=== PATIENT | female | born 1955 | race Caucasian/White ===

== ENCOUNTER 2018-04-16 10:00 | Outpatient (RCR) | payer BC, SELFPAY ==
--- NOTE | 2018-04-08 14:18 | IE_ITS ---
Date: April 08, 2018 Referring: Parish Thao M.D. M.D. Diagnosis: left shoulder impingement syndrome P.T. Diagnosis: same (supraspinatus tendinitis) SUBJECTIVE: History of Present Illness: Fiordaliza is presenting to P.T. with complaints of left shoulder pain. Shoulder pain began last week of December 2017 following an extensive canoe trip (about one month) where she was canoeing hourly on a daily basis. She has a significant history, prior to this, of three rotator cuff tears, but had no exacerbation of the right shoulder pain while on her trip. She does recall global bilateral shoulder achiness following her trip. The left shoulder discomfort never resolved, and became more severe. She does not recall one specific evident of obvious trauma. She did have a cortisone injection to the left shoulder in February (Dr. Thao) with two days of relief. She reports returning to weight lifting shorter thereafter, and while she only did half the weights she normally lifts it exacerbated her pain levels. She is knowledgeable about rotator cuff strengthening considering her history with her right shoulder, and has been utilizing light free weights of approximately 3 to 4# for rotation strengthening bilaterally. However, she is now only able to use 1# on the left side due to weakness as well as her discomfort. She is very nervous about the development of her left shoulder pain , as she is a very avid canoeing with an upcoming tripped planned. She does not want to miss this trip. She is also nervous that her fellow canoe friends will stop asking her on trips. Pain Ratin to 8/10 Pain Location: Left shoulder blade, left lateral deltoid Prior Level of Function: WNL Current Level of Function: She cannot lift her hiking backpack. She has sleep disruption on her left side. She has pain when pulling her shift over her head or even holding a mirror to put her makeup on with her left arm. She cannot push doors open or push anything to her side with the left UE. She has difficulty getting her hand behind her back. 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 She lives in a private home with her significant other. Comorbidities: Osteopenia, right rotator cuff repairs 2011, 2012 and 2016, left rotator cuff 2013 Medications: Not reported. Quality of Life: __x__ Fair Standardized Measures: DASH score: __36%__ OBJECTIVE: Posture: Mild scapular winging bilaterally, left slightly greater than right. Shoulder protrusion, left slightly greater than right, but no obvious other deformities or remarkable impairments. Observation: (behavior, atrophy, skin color, etc.) She communicates well, but is emotional when discussing her functional limitations and her inability to carry out her outdoor endeavors. She is nervous regarding her future in these areas. Gait: WNL Palpation: Tension throughout the left infraspinatus muscle belly, supraspinatus musculotendinous junction and left upper trapezius. Edema: N/A ROM: Cervical spine and right UE are WNL. Left UE is also WNL A and P, but reports of intermittent impingement discomfort. P, has end range discomfort at about 150 of abduction, but with AP glides this dissipates. Joint Accessory Motion: Hyper mobile scapulothoracic all planes. Glenohumeral is WNL, but with most noted limitations AP, but still WNL. Strength: Flexion 3+/5 with pain, abduction 4/5, internal rotation 5/5, external rotation 3+/5 with pain (tears resulting). Neuro: WNL left UE. Special Tests: (-) speeds. (+) empty can. (+) [place] Adriel and Neer impingement testing. (-) drop arm. (-) labral testing. Treatment: IE: 38240 x1 Manual therapy: 05576 x1 Patient Education: Differ heavy lifting and repetitive movements. HEP instruction to include: 1) standing or sitting lower trapezius isometric 10 seconds 10x every half hour 2) prone lower trapezius concentric contraction with glenohumeral extension 10 seconds 10x as often as possible Manual therapy: Left scapulothoracic mobs, all planes, more for desensitization and neuro facilitation. Soft tissue massage to the posterior capsule and infraspinatus down regulation, posterior capsule cross friction massage and trigger point release to the infraspinatus fossa and supraspinatus region. Cross friction massage desensitization to the infraspinatus fossa, lower trapezius up regulation, and Rock taping to facilitate proper movement pattern of left shoulder girdle. Direct treatment time: 60 minutes ASSESSMENT: Patient is a 62-year-old female, referred for PT services with the diagnosis of left shoulder impingement syndrome. Patient presents with clinical signs and symptoms consistent with left supraspinatus tendinitis, impingement syndrome, as demonstrated by the following impairment level findings: 1) movement dysfunction of the left shoulder girdle 2) soft tissue dysfunction of the infraspinatus and supraspinatus 3) scapulothoracic instability 4) shoulder girdle weakness, particularly of external rotators, rotator cuff and scapulothoracic musculature Impairments are contributing to the following functional limitations: 1) inability to do heavy lifting 2) cannot sleep on her left side, with sleep disruption 3) cannot carry out outdoor endeavors 4) cannot carry a heavy backpack 5) cannot hold things in her left arm at shoulder height Patient is assessed as: __x__ Moderate 19847 complexity, based on the following : History: (list): See comorbidities and social history. Examination: (list): See above for functional limitations and impairments. Presentation: Evolving Decision-Making: Moderate complexity 36 % Disability based on DASH ____ Patient requires skilled PT intervention to remediate the above functional limitations to return to: __x__ Premorbid level of function __x__ Return to full functional mobility __x__ Other: return to premorbid level of outdoor endeavors/recreational activities Prognosis: __x__ Good STG: __6__ weeks. 1) DASH improved to 25% disability 2) sleeping without disruption 3) able to return to weight lifting at least 3 to 4# with focus on deltoid and open chain flexion and abduction activities so she can return to her recreational activities 4) pulling shirts overhead without discomfort LTG: __12__ weeks. __x__ Return to premorbid level of function. __x__ Return to full, pain-free, functional mobility. __x__ Independent with self-maintenance program. PLAN: Patient to be seen 2x per week, for 12 weeks, adjusting frequency of visits per patient symptoms and response to treatment. Treatment to include: Manual therapy - 75075 - soft tissue mobs, scapulothoracic and glenohumeral articular mobs of the left shoulder girdle Neuro re-ed - 55656 - up regulation techniques, body awareness exercise to improve serratus anterior and lower trapezius activation for proper movement pattern Therapeutic exercise - 85894 - gross left shoulder girdle strengthening Thank you for this referral. Please do not hesitate to contact me with any questions or concerns regarding this patient's plan of care.
--- NOTE | 2018-04-11 08:00 | PTTR_ITS ---
DATE: 04/11/18 SUBJECTIVE: Fiordaliza stating that following her first treatment session, she was able to sleep without pain last night. She woke up pain at about 3am, but she feels she had been laying on the L side for some time. She did find the exercises to be helpful. Tape was a good reminder for her to use proper alignment of her shoulder. Manual therapy: ([id number]). L shoulder distraction, gliding in all planes of movement with focus of grade 4 AP mobilizations. Mobilization of L GH joint all planes with focus of AP MWM into flexion/quadrant positions. Cross body stretching with stabilization of the scapula. L scap thoracic mobilizations with lift off and distraction, STM with focus on the supraspinatus, posterior capsule and desensitization, supraspinatus tendon. She is then seen by Eloise Rosario PTA for Therex portion of treatment per my direction (see her note) ROM is full passively with end range discomfort into flexion in quadrant with soft tissue restriction, but otherwise WNL. Notable soft tissue tension to the supraspinatus, posterior capsule and remarkable sensitivity of the supraspinatus tendon. Direct treatment time: 30 MINS Total treatment time: 30 MINS JH/dl
--- NOTE | 2018-04-11 08:30 | PTTR_ITS ---
DATE: 04/11/18 Co-treat with primary therapist DAVID Huston (see her note for specifics ) Therapeutic procedures ([id number]). Began with brief IASTM up regulation to the lower trap musculature followed by application of Rock tape technique starting at the anterior L shoulder and attaching to the lower trap. This was followed by initiation of scapular, and lower trap strengthening program per flow sheet details. She requires cues and tactile feedback for appropriate positioning and muscle activation. Performed open/close chain strengthening including serratus, anterior strengthening and lower trap strengthening. * x See flow sheet: Direct treatment time: 30 mins Total treatment time: 30 mins LB/dl
--- NOTE | 2018-04-16 10:00 | PTTR_ITS ---
DATE: 04/16/18 SUBJECTIVE: Fiordaliza stating no great change in symptoms. She was very sore following her last treatment after friction massage along front of the shoulder , but it did dissipate after a day or two. Notes most of her pain when reaching up behind her back along anterior shoulder and when sleeping. However , when stabilizing her shoulder blade and putting herself in proper movement pattern, she admits she is able to reduce her pain in L shoulder when reaching behind back. OBJECTIVE: ROM: A/P are full and non-irritable. PALPATION; Soft tissue tension and pain along posterior capsule, infraspinatus fossa, and sensitivity along the anterior GH joint. Manual therapy: ([id number]). GH and scap, thoracic accessory mobilization all planes for nerve facilitation, general relaxation, STM through the L posterior capsule, CFM along the anterior GH joint along the supraspinatus and anterolateral telescoping for neuro facilitation. Therapeutic procedures ([id number]). Complete series as follows: 1: Prone L GH flexion, horizontal abduction, rowing and extension all 0#, 20x with up regulation stimulation to lower trap throughout. 2: R sidelying L ER 0#, x20 as well as deceleration into horizontal adduction x20. 3: Modified plank for serratus activation-1 minute hold. All of these are issued to her for HEP to complete over next week as she will be out of town. Direct treatment time: 30 mins Total treatment time: 30 mins A: Fiordaliza is actually demonstrating very good ROM, non-irritable. Considering her subjective description of impingement when sleeping and reaching behind her back, I think with further stabilization of the scapula and activation of the lower trap, will be able to control the movement of GH joint with dissension activities and with IR movements, assuming she is compliant, which I anticipate she will be. P: Follow up in one week progress strengthening program for L shoulder girdle. TOMASA/dl
== END 2018-04-19 23:59 | disposition home or self-care (01) ==
LOC: PT 10:00
PROVIDERS: Referring Provider Orthopaedic Surgery; Visit Provider Orthopaedic Surgery
DX: M75.42 Impingement syndrome of left shoulder (principal); M75.32 Calcific tendinitis of left shoulder
CPT/HCPCS: 97110; 97140; 97162

== ENCOUNTER 2020-07-30 09:13 | Outpatient (CLI) | payer BC, SELFPAY ==
--- NOTE | 2020-07-30 08:45 | DI.RAD_ITS ---
EXAM: XR KNEE RT 4V AP,LAT,SEVERO,PAT CLINICAL HISTORY: R knee pain. TECHNIQUE: 2D digital imaging was performed. COMPARISON: CR LEFT KNEE LIMITED 1 OR 2 VIEWS from 08/24/2009 FINDINGS: BONES: No acute fracture is present. No bony destructive lesion is seen. S/p ACL repair. Normal mine ralization. JOINTS: The knee is normally aligned. No joint effusion is seen. Joint spaces well maintained. Mild to moderate periarticular spurring. SOFT TISSUE: Normal. IMPRESSION: S/p ACL reconstruction. Mild degenerative changes. DATA REPOSITORY: RADIATION DOSE DELIVERED:
== END 2020-07-30 09:33 ==
PROVIDERS: PCP Family Medicine; Referring Provider Family Medicine; Visit Provider Physician Assistant
DX: M25.561 Pain in right knee (principal); M17.11 Unilateral primary osteoarthritis, right knee
CPT/HCPCS: 73564

== ENCOUNTER 2021-05-02 09:52 | Outpatient (CLI) | payer BC, SELFPAY ==
--- NOTE | 2021-05-02 09:30 | DI.RAD_ITS ---
Exam(s) XR STANDING ALIGNMENT EXAM: XR STANDING ALIGNMENT CLINICAL HISTORY: eval R knee alignment. TECHNIQUE: 2D digital imaging was performed. Standing AP views were performed from the pelvis throu gh the ankles. COMPARISON: No exams were available for comparison FINDINGS: BONES: No acute fracture is present. No bony destructive lesion is seen. JOINTS: Knees: Prior right ACL repair. Periarticular spurring right greater than left.. Joint space s well maintained. The ankle and hip joints are unremarkable. SOFT TISSUE: Normal. IMPRESSION: No significant leg length discrepancy. Degenerative changes of both knees, right greater than left. DATA REPOSITORY: RADIATION DOSE DELIVERED:
--- NOTE | 2021-05-02 09:30 | DI.RAD_ITS ---
Exam(s) XR KNEE RT 2V AP,LAT EXAM: XR KNEE RT 2V AP,LAT CLINICAL HISTORY: eval continued r knee pain. TECHNIQUE: 2D digital imaging was performed. COMPARISON: CR XR KNEE RT 4V AP,LAT,SEVERO,PAT from 07/30/2020 FINDINGS: BONES: No acute fracture is present. No bony destructive lesion is seen. Hardware related to ACL repa ir. JOINTS: There is narrowing of the lateral femoral tibial joint space and periarticular spurring. The re is mild spurring from the medial femoral tibial joint and patellofemoral joint.. A small joint ef fusion is seen. SOFT TISSUE: Normal. IMPRESSION: Worsening of degenerative changes of the lateral femoral tibial joint. Prior ACL repair. DATA REPOSITORY: RADIATION DOSE DELIVERED:
== END 2021-05-02 09:53 | disposition home or self-care (01) ==
LOC: DIORS 09:53
PROVIDERS: PCP Family Medicine; Referring Provider Family Medicine; Visit Provider Student in an Organized Health Care Education/Training Program
DX: M17.11 Unilateral primary osteoarthritis, right knee (principal)
CPT/HCPCS: 73560; 77073

== ENCOUNTER 2021-07-11 02:26 | Outpatient (CLI) | payer BC, SELFPAY ==
[2021-07-11 13:36] LABS: Source Nasal/Nares
[2021-07-11 17:39] LABS: COVID-19 PCR Negative (Negative)
== END 2021-07-11 02:27 | disposition home or self-care (01) ==
LOC: LBO 02:26
PROVIDERS: PCP Family Medicine; Visit Provider Student in an Organized Health Care Education/Training Program
DX: Z20.822 Contact with and (suspected) exposure to COVID-19 (principal)
CPT/HCPCS: 87635

== ENCOUNTER 2021-07-11 03:33 | Outpatient (CLI) | payer BC, SELFPAY ==
[2021-07-11 09:55] LABS: HGB 13.1 g/dL (11.2-15.7); MCH 30.1 pg (27.0-33.0); MCHC 32.8 % (32.0-36.0); Platelet Count 241 10^3/uL (130-400); RBC 4.35 10^6/uL (3.93-5.22); RDW 12.5 % (11.7-14.6); RDW-SD 42.4 fL; WBC 3.91 10^3/uL (4.4-10.8)
[2021-07-11 10:12] LABS: BUN 21 mg/dL (7-18); CREATININE 0.8 mg/dL (0.55-1.02); Calcium 9.3 mg/dL (8.5-10.1); Chloride 107 mmol/L (98-107); Glucose 58 mg/dL (74-106); Potassium 4.4 mmol/L (3.5-5.1); Sodium 146 mmol/L (136-145)
== END 2021-07-11 03:34 | disposition home or self-care (01) ==
LOC: LBO 03:33
PROVIDERS: PCP Family Medicine; Visit Provider Student in an Organized Health Care Education/Training Program
DX: M17.11 Unilateral primary osteoarthritis, right knee (principal); Z01.818 Encounter for other preprocedural examination
CPT/HCPCS: 36415; 80048; 85027

== ENCOUNTER 2021-07-12 09:03 | Day surgery (SDC) | payer BC, SELFPAY ==
[2021-07-12] VITALS (9 sets, daily range): BP systolic 94–130; BP diastolic 59–80; PULSE 62–76; RESP 13–20; TEMP 36.3–37.7; O2SAT 95–100; BMI 23.0
--- NOTE | 2021-07-12 09:59 | W.ANESPRE ---
General Info Date of Service Date Performed: 07/12/21 Height: 5 ft 0.75 in Weight: 54.885 kg Body Mass Index (BMI): 23.0 Surgical Procedure: Operation Date: 07/12/21 12:10 Proposed Procedures Side Surgeon p Knee Total Arthroplasty Right Miguel Lauren MD Meds Allergies and Home Medications Allergies Allergy/AdvReac Type Severity Reaction Status Date / Time hydrocodone Allergy Verified 07/12/21 09:35 codeine AdvReac Severe NAUSEA/VOMI Unverified 07/12/21 09:35 TING gluten AdvReac Unknown DIARRHEA; Unverified 07/12/21 09:35 PAIN homatropine [Homatropine] AdvReac Unknown VOMITING Unverified 07/12/21 09:35 lactose AdvReac Unknown Nausea Unverified 07/12/21 09:35 Home Medication Medication Instructions Recorded calcium carbonate-vitamin D3 1 ea PO BID 02/28/13 [Os-Edwin 500+D Tablet] cyclosporine [Restasis] 1 drp OPHTHALMIC BID drp 02/28/13 estradiol [Vagifem] 10 mcg VG TWICE A WEEK #26 tab-cap 07/24/13 olopatadine 0.1 % eye drops 1 drp OPHTHALMIC (EYE) BID 06/24/21 albuterol sulfate 1 puff INHALATION DIRECTED 07/11/21 efinaconazole [Jublia] 1 applic TOPICAL DIRECTED 07/11/21 Current Visit Medications: Current Medications Generic Name Dose Route Start Last Admin Trade Name Freq PRN Reason Stop Dose Admin Acetaminophen 1,000 mg 07/12/21 06:00 Acetaminophen 500 Mg Tab PO 07/12/21 16:00 PREOP RASHMI Celecoxib 400 mg 07/12/21 06:00 Celecoxib 200 Mg Cap PO 07/12/21 16:00 PREOP RASHMI Gabapentin 300 mg 07/12/21 06:00 Gabapentin 300 Mg Cap PO 07/12/21 16:00 PREOP RASHMI Tranexamic Acid 1,000 mg/ 60 mls @ 360 mls/hr 07/12/21 06:00 Sodium Chloride IVPB 07/12/21 16:00 PREOP RASHMI Tranexamic Acid 1,000 mg/ 60 mls @ 360 mls/hr 07/12/21 06:00 Sodium Chloride IVPB 07/12/21 16:00 DIRECTED RASHMI Ringer's Solution 1,000 mls @ 80 mls/hr 07/12/21 06:00 IV 08/10/21 23:59 INFUSION RASHMI Cefazolin Sodium/Dextrose 2 gm in 50 mls @ 100 mls/hr 07/12/21 06:00 Ancef Duplex IVPB 08/10/21 23:59 PREOP RASHMI IV Miscellaneous Supplies 1 each 07/12/21 06:00 Iv Access IV 08/10/21 23:59 DIRECTED RASHMI Sodium Chloride 0 ml 07/12/21 06:00 Normal Saline Flush 10 Ml Syr IV 08/10/21 23:59 PRN PRN Sodium Chloride 0 ml 07/12/21 06:00 Normal Saline 10 Ml Vial IJ 08/10/21 23:59 DIRECTED PRN Sterile Water 0 ml 07/12/21 06:00 Water,Injection,Sterile 10 Ml Vial IJ 08/10/21 23:59 DIRECTED PRN PFSH Active Problems Active Problems: Problem Status Onset Code Arthritis of right knee M17.11 Asymmetrical sensorineural hearing loss H90.3 Medical History Active Problem List (Updated 07/12/21 @ 09:48 by Kelly Becker) Arthritis of right knee (Acute) Asymmetrical sensorineural hearing loss (Acute) Medical History (Updated 07/12/21 @ 09:48 by Kelly Becker) Breast lump (03/19/07) Celiac disease Chondromalacia of right patellofemoral joint DVT (deep venous thrombosis) Dysfunctional uterine bleeding Hemorrhoids Herpes zoster History of asthma Lactose intolerance Menopausal syndrome Osteopenia per Dexa 2003/ unchanged in 2004 Polyp of colon 05/31/11- COLONOSCOPY DR. POOL Postoperative nausea and vomiting Rectocele Rotator cuff syndrome (03/06/11) S/P surgery x 3 Thrombophlebitis R LEG @ AGE 16, POST TRAUMATIC Varicose veins of lower extremity (09/07/09) Surgical History Surgical History BUNIONECTOMY 2005 1979 B/L Colonoscopy - MAC (06/01/11) DR. POOL Hemorrhoidectomy (~2008) History of repair of ACL Rotator Cuff Repair x 3 Status post reconstruction of anterior cruciate ligament (~05/2019) VEIN STRIPPING (~2009) Tobacco Smoking/Tobacco Use Status: Never Alcohol Alcohol Intake: never Substance Use Substance use: Never Substance use type: does not use Vital Signs and Lab Results Vital Signs Most Recent Vital Signs in EMR: Most Recent Vital Signs Temp Pulse Resp BP Pulse Ox 36.8 C 67 16 118/78 99 07/12/21 09:30 07/12/21 09:30 07/12/21 09:30 07/12/21 09:30 07/12/21 09:30 Lab Results Blood Type / Crossmatch: No Data to Display Complete Blood Count: White Blood Count 3.91 10^3/uL (4.4-10.8) L 07/11/21 09:32 07/11/21 Red Blood Count 4.35 10^6/uL (3.93-5.22) 07/11/21 09:32 07/11/21 Hemoglobin 13.1 g/dL (11.2-15.7) 07/11/21 09:32 07/11/21 Hematocrit 40.0 % (36.0-46.0) 07/11/21 09:32 07/11/21 Platelet Count 241 10^3/uL (130-400) 07/11/21 09:32 07/11/21 Complete Metabolic Panel: Sodium Level 146 mmol/L (136-145) H 07/11/21 09:32 07/11/21 Potassium Level 4.4 mmol/L (3.5-5.1) 07/11/21 09:32 07/11/21 Chloride Level 107 mmol/L (98-107) 07/11/21 09:32 07/11/21 Carbon Dioxide Level 34.0 mmol/L (21.0-32.0) H 07/11/21 09:32 07/11/21 Blood Urea Nitrogen 21 mg/dL (7-18) H 07/11/21 09:32 07/11/21 Creatinine 0.8 mg/dL (0.55-1.02) 07/11/21 09:32 07/11/21 Estimated GFR/1.73 m2 >= 60.00 (mL/min/1.73m2) 07/11/21 09:32 07/11/21 Calcium Level 9.3 mg/dL (8.5-10.1) 07/11/21 09:32 07/11/21 Glucose Level 58 mg/dL (74-106) L 07/11/21 09:32 07/11/21 Liver Function Panel: No Data to Display Coagulation Panel: No Data to Display Cardiac Panel: No Data to Display Arterial Blood Gas: No Data to Display Venous Blood Gas: No Data to Display Pancreas Panel: No Data to Display Thyroid Panel: No Data to Display Infectious Disease: Coronavirus (COVID-19)(PCR) Negative (Negative) 07/11/21 10:15 07/11/21 Coronavirus 2019 Source Nasal/Nares 07/11/21 10:15 07/11/21 Blood Cultures: No Data to Display Toxicology Panel: No Data to Display Anesthesia Assessment and Plan Anesthesia History Personal History: PONV Family History: Other (PONV) Exercise Tolerance Exercise Tolerance: Metabolic Equivalents>4 Pertinent Negatives Pertinent Negatives: No Symptoms of GERD, No Major Cardiovascular Symptoms or Complaints and No Major Pulmonary Symptoms or Complaints Cardiac & Pulmonary Exam Cardiac Exam: Normal S1/S2 Heart Sounds Pulmonary Exam: Clear Bilateral Breath Sounds Implantable Cardiac Device Does patient have a Pacemaker or an ICD?: No Airway Exam Known Difficult Airway: No Mallampati Class: 1 Mouth Opening: Normal (> 3cm) Thyromental Distance: Greater than 3 cm Neck Range of Motion: Full ROM Neck Circumference: Normal Teeth Condition: Normal Dentition Airway Comments: Chipped #11 ASA Classification ASA Score: ASA 2 Emergency Case?: No NPO Status NPO Status: NPO Clears >2 hours, Solids >8 hours Anesthesia Plan Resuscitation Status: Full Code Anesthesia Technique: Spinal Anesthesia Airway Planned: Natural Airway Monitors Used: Standard Monitors
[2021-07-12] MEDS: Lactated Ringers 1,000 ML 80 ML IV (10:00)
[2021-07-12] MEDS: Celecoxib 200 MG CAP 400 MG PO (10:08)
[2021-07-12] MEDS: Gabapentin 300 MG CAP PO (10:08)
[2021-07-12] MEDS: Acetaminophen 500 MG TAB 1000 MG PO (10:08)
--- NOTE | 2021-07-12 10:28 | W.ANESNERVE ---
Nerve Block Single Injection Procedure Date and Time Date Performed: 07/12/21 Procedure Start: : Location Where Procedure Performed Procedure Location: Day Surgery Unit Reason Performed: Postoperative Analgesia Requesting Provider: Miguel Lauren Timeout Performed Timeout Performed: Yes Monitoring Used ECG, Blood Pressure, SpO2 and See EMR for corresponding vital signs Sterility Sterility: Hand Hygiene, Surgical Cap, Surgical Mask, Sterile Gloves, Sterile Drape/Sheet, Eye Protection and Chlorhexidine Sedation Given During Procedure Sedation Given (Indicate Dose Given): No Sedation given Patient Mental Status Patient Mental Status: Awake Nerve Block 1st Nerve Block: Laterality: Right Block Type: Adductor Canal Needle / Catheter Used: 100mm SonoPlex II Local Anesthetic Bolus (Indicate Dose Given): Lidocaine used for local infiltration of skin, Injected in 3-5ml increments after negative blood aspiration and Bupivacaine 0.25% Dose:: 20 cc Additives (Indicate Dose Given): None Ultrasound: Sterile probe cover and gel used Ultrasound Image Saved?: Yes Nerve Stimulator: Not Used Paresthesia: None Post Procedure Pain score (0-10): 0 Procedure Tolerated: No Complications and Patient tolerated well Procedure Outcome: Successful Performed By: Severino Brower
[2021-07-12] MEDS: ceFAZolin 2 GM/50 ML BAG IVPB (10:45)
[2021-07-12] MEDS: Ketorolac 30 MG/ML VIAL (11:35)
[2021-07-12] MEDS: Normal Saline 50 ML (11:35)
[2021-07-12] MEDS: Bupivacaine 0.25% Pres-Free 30 ML VIAL (11:35)
--- NOTE | 2021-07-12 12:46 | W.PM.DSUDISC ---
Discharge Plan Disposition Patient Disposition: HOME Condition: Good Discharge Details Reason For Visit: Right TKA Attending Provider: Miguel Lauren Primary Care Provider: Ramona Chapa Home Meds and New Rx's Prescriptions: New acetaminophen 500 mg tablet 1,000 mg PO TID Qty: 90 RF: 0 aspirin 81 mg tablet,delayed release (DR/EC) 81 mg PO BID Qty: 60 RF: 0 celecoxib 200 mg capsule 200 mg PO BID Qty: 60 RF: 0 gabapentin 300 mg capsule 300 mg PO QHS Qty: 14 RF: 0 hydromorphone 2 mg tablet 1 - 2 mg PO Q4H PRN (Reason: pain) Qty: 20 RF: 0 pantoprazole 40 mg tablet,delayed release (DR/EC) 40 mg PO DAILY Qty: 30 RF: 0 Continued olopatadine 0.1 % drops 1 drp ophthalmic (eye) BID RF: 0 Restasis 1 EACH dropperette 1 drp Ophthalmic BID RF: 0 calcium carbonate-vitamin D3 [Os-Edwin 500 + D3] 1 EACH tablet 1 ea PO BID RF: 0 estradiol [Vagifem] 10 MCG tablet 10 mcg VG TWICE A WEEK Qty: 26 RF: 12 albuterol sulfate 90 mcg/actuation HFA aerosol inhaler 1 puff inhalation DIRECTED RF: 0 Jublia 10 % solution with applicator 1 applic TOPICAL DIRECTED RF: 0 Discharge Instructions Additional Instructions: Total Knee Discharge Instructions Activity: The most important activity is to walk. You should try to take short walks a few times a day. It is important that when resting you work on keeping the knee straight. Avoid putting a pillow behind the knee as this will encourage flexion. Work on range of motion exercises as provided by Physical Therapy. If you have the [employer] bike coming, this will be your primary tool for exercise after the knee replacement. You should use it and follow the directions for the knee. Utilize the other exercises sparingly based on your symptoms. - Start outpatient physical therapy within 2 weeks. - You should wear the MILAD hose on both legs for 2 weeks. You may remove these at night. You may also use any compression sock in place of the MILAD hose. - Utilize [employer] to review exercises, see videos on exercises and obtain basic information pertaining to your surgery and your recovery. Dressing: Remove the Celio wrap by 2 days after your surgery and put on the MILAD stocking given to you from the hospital. Keep the surgical dressing (underneath the CELIO wrap) in place for at least one week. After the first week it may be removed and replaced with light gauze and tape or nothing. The wound and dressing may get wet after 3 days but avoid soaking the dressing or otherwise it will need to be changed. Many people prefer covering the dressing with cling wrap (saran wrap) to minimize it from getting soaked. If it gets wet, just pat dry. If it starts to peel off then it will need to be changed. Medications: - You should take Tylenol and anti-inflammatory Celebrex as your primary pain control medications. If the Celebrex is too expensive or not covered, please call the office for another alternative (Advil/Ibuprofen or Naproxen/Aleve) - You have been prescribed a stronger pain medication Hydromorphone for breakthrough pain, take as needed as prescribed. - You have also been prescribed a stomach acid reduction agent Pantoprozole to help reduce stomach acid and reflux. - You have been prescribed Gabapentin to take at night for restlessness and nerve pain. - You will be taking Aspirin 81mg twice a day for DVT prevention unless instructed otherwise. - If you have constipation you should take Colace or Miralax (both [id number]). It takes most people 3-4 days to have a bowel movement. Follow-up: 2 weeks If you have any acute concerns or questions, please do not hesitate to contact the office at [phone]. You may contact Dr. Lauren with any questions after hours through the hospital at [phone] or on his cell phone at [phone]. Referrals: Miguel Lauren MD [ [facility] STAFF PHYSICIAN] - Equipment/Supplies: Walker Activity:: Activity as Tolerated Shower/Bathe:: 72 hours Diet:: As Tolerated DS: Diagnosis Discharge Diagnosis (1) Arthritis of right knee: Status: Acute (2) History of total right knee replacement (TKR): Status: Acute
--- NOTE | 2021-07-12 14:59 | PT.INIE ---
Date of service: 07/12/21 Time of Service: 14:59 PT Notes Visit Reasons: Right TKA Physical Therapy Day Surgery Initial Evaluation Date: 07/12/2021 Referring Doctor: ELIANA Cohen PT Orders: PT CONSULT: Eval/treat Precautions: WBAT on right LE with AD. Patient Profile/Admitting Diagnosis: Fabiana is a 65-year-old female with degenerative joint disease of the right knee and is status post right total knee arthroplasty on postoperative day 0. Active Problem List Arthritis of right knee (Acute) Chondromalacia of right patellofemoral joint (Acute) Celiac disease (Acute) Lactose intolerance (Acute) Menopausal syndrome (Acute) PMHX: Medical History Breast lump (03/19/07) DVT (deep venous thrombosis) Dysfunctional uterine bleeding Hemorrhoids Herpes zoster Osteopenia per Dexa 2002/ unchanged in 2004 Polyp of colon 05/31/11- COLONOSCOPY DR. POOL Rectocele Rotator cuff syndrome (03/06/11) S/P surgery x 3 Thrombophlebitis R LEG @ AGE 16, POST TRAUMATIC Varicose veins of lower extremity (09/07/09) Surgical History BUNIONECTOMY 2005 1979 B/L Colonoscopy - MAC (06/01/11) DR. POOL Hemorrhoidectomy (~2008) Rotator Cuff Repair x 3 2010/2011 Status post reconstruction of anterior cruciate ligament (~05/2019) VEIN STRIPPING (~2009) Social History/Home Situation: Lives alone in a private home with 2 steps to enter however patient will be staying at her daughter's apartment for 2 weeks where there is a light of steps to the entrance of her daughter's house with a rail on 1 side. Retired high school french teacher. Avid hiker. Equipment Owned/DME: Bilateral axillary crutches, single-point cane Subjective: Reports 5/10 pain in the right knee after walking stairs training. Denies headache, chest pain, and dizziness throughout session. Objective: General Observation: Supine in stretcher. ELAN wraps to right LE. Cryo/Cuff to right knee. Mental Status: Alert and oriented x4 Pain: 5/10 in the right knee after ambulation and stair negotiation ROM: Right Lower Extremity: Hip flexion WFL. Hip abduction WFL. Knee flexion 10 degrees to 90 degrees with pain at end range. Knee extension -10 degrees ankle dorsiflexion WFL. Ankle plantarflexion WFL. Left Lower Extremity: Hip flexion WFL. Hip abduction WFL. Knee flexion WFL. Ankle dorsiflexion WFL. Ankle plantarflexion WFL. Strength: Right Lower Extremity: Hip flexors 5/5. Hip abductors 4/5. Knee flexors 4/5. Knee extensors 3-/5. Knee extension 3-/5 ankle dorsiflexors 4/5. Ankle plantarflexors 5/5. Left Lower Extremity:Hip flexors 5/5. Hip abductors 5/5. Knee flexors 5/5. Knee extensors 5/5. Ankle dorsiflexors 4/5. Ankle plantarflexors 5/5. Sensation: Intact as to pain and pressure in bilateral lower extremities Bed Mobility/Transfers: Supine to sit supervision Sit to stand contact-guard assist Stand to sit standby assist Bed to chair standby assist Gait: Instructed patient in safe gait pattern using front wheeled walker and step through gait requiring contact-guard assist for up to 100 feet. Stairs: Negotiated 6 x 4 inch steps and 4 x 6 inch steps while holding onto a single-point cane and one rail with step to gait pattern requiring only standby assist. Balance: Static Sitting: Normal Dynamic Sitting: Normal Static Standing: Fair Dynamic Standing: Fair Special Tests: Mobility Limitations Standardized Measure [facility] AM-PAC 6 clicks Basic Mobility Inpatient Short Form: Raw Score: 23 CMS Score: 11% deficit Informed Consent/Education: Patient instructed in purpose of PT consult. Reviewed [employer] postop exercises via mobile claudia. Education and training on initial set of exercises that can be done at home have been completed with patient. Assessment: Good right quad activation. Reported 5/10 pain in the right knee after ambulation and stair negotiation activities later on subsided with rest. Will have support of her daughter for the first 2 weeks as she recovers. Has good ability to use [employer] mobile claudia for post operative exercises. Patient presents with clinical signs and symptoms consistent with current/admitting diagnoses that have resulted to mobility limitations, gait instability, generalized weakness, and impairment of motor control as demonstrated by the following impairment level findings: 1. Decreased strength to right knee major muscle groups 2. Impaired standing balance 3. Limitation of joint range of motion in right knee Impairments are contributing to the following functional limitations: 1. Inability to safely ambulate without assistive device 2. Increase completion time for mobility ADL performance 3. Increased fall risk Patient is assessed as a 80044 moderate complexity based on the following: History: 65 [id number] with impairment level findings, functional limitations, and past medical history as indicated above Examination: Demonstrable impairment in strength, balance, and mobility level with underlying impairments and functional limitations as documented above Presentation: Stable Decision Makin moderate complexity Goals: N/A. PT evaluation and 1-2 treatment sessions only for functional mobility training using recommended AD and for HEP instruction. Plan of Care/Treatment Plan: N/A. PT evaluation and 1-2 treatment session only for functional mobility training using recommended AD and for HEP instruction. DISCHARGE RECOMMENDATIONS: [] Home with no services [] [] Home with services [specify] [X] Home with outpatient PT. Home when medically cleared by orthopedic surgeon. Outpatient PT after 2 weeks in order to facilitate return to premorbid independent level without an assistive device. [] SNF for continued rehabilitation [] [] [facility] [] [] SNF versus LTC based on ability to participate and progress [] TREATMENT CODE/TIME: 9716 2 x 20 minutes, 9753 0 x 31 minutes beginning at 14:59 PM. Thank you for the opportunity to participate in the care of this patient. Soraida Bright PT, DPT, CLT [facility] [place], [place]
--- NOTE | 2021-07-12 15:26 | W.ANESPOSTOP ---
Postoperative Evaluation Date, Time and Location Date Performed: 07/12/21 Time Performed: 15:26 Patient Location: Day Surgery Unit Vital Signs Most Recent Imported Vital Signs: Most Recent Vital Signs Temp Pulse Resp BP Pulse Ox 36.8 C 70 16 94/63 L 96 07/12/21 14:14 07/12/21 14:14 07/12/21 14:14 07/12/21 14:14 07/12/21 14:14 Pain Score Most Recent Pain Score: Most Recent Pain Score Pain Level 0 07/12/21 14:14 Assessment Mental Status: Awake (Alert & Oriented to Patient Baseline) Airway and Respiratory Function: Patent airway with normal (patient baseline) respiratory exam Cardiovascular Function: Hemodynamically Stable Hydration Status: Adequately Hydrated Nausea & Vomiting: No Nausea or Vomiting Pain: Pt. Denies Any Pain Peripheral Nerve Block: Patient did not receive a nerve block
--- NOTE | 2021-07-12 21:51 | ROE_ITS ---
Date of service: 07/12/21 Time of Service: 12:13 Operative Note Operative Note DATE OF PROCEDURE: 07/12/21 PRE-OP DIAGNOSIS: Right Knee Osteoarthritis POST-OP DIAGNOSIS: same PROCEDURE: Right Total Knee Replacement SURGEON: Miguel Lauren COLLAR SEWER: Andrew Sales ANESTHESIA TYPE: Spinal Refer to Anesthesia Record ESTIMATED BLOOD LOSS: 150 PATHOLOGY: none sent TOURNIQUET TIME: 0 COMPLICATIONS: None Patient was transported to: PACU Patient's condition: stable Implants: 1. Depuy Attune Cementless Cruciate Retaining Femoral Component, Size 5 narrow 2. Depuy Attune Cementless Rotating Platform Tibial Component, Size 3 3. Depuy Attune 5x6mm CR/RP Poly 4. Depuy Attune Patellar Component, Size 35 Indications: I have seen Fiordaliza in clinic for symptoms of knee arthritis, confirmed with radiographic findings. She has exhausted nonoperative methods an d was having significant limitations in daily function and desired better function and less pain. I discussed the technical details of a knee replacement. I explained the risks of the procedure to include, but not limited to, bleeding, infection, pain, stiffness, fracture, damage to nerves and vessels, damage to muscles and tendons, loosening, need for repeat procedure, blood clot and cardiopulmonary demise. Despite these risks, [facility] elected to proceed. Findings: There was notable arthritis throughout the knee, mostly medial with focal areas within the patella and lateral compartment. Procedure Description: Fiordaliza was greeted in the preoperative holding area where the correct side was identified and marked. The consent was reviewed with the patient and signed. The history and physical was updated. All questions were answered. Preoperative medications were administered: Acetaminophen 1000mg, Celebrex 400mg, and Gabapentin 300mg. An adductor canal block was then administered by the anesthesia team in the PACU. Fiordaliza was taken back to the operating room. A spinal anesthestic was th en administered. The patient was placed into the supine position on the operating room table. A nonsterile tourniquet was placed high onto the leg but only used for cementing. Posts were placed for positioning during the procedure. All bony prominences were well padded. Prophylactic antibiotics in the form of Cefazolin were administered. 1g of Tranxemic Acid was given intravenously within 30 minutes of incision. The right leg was then prepped with Chloraprep and draped in a standard fashion with impervious stockinette. A second prep with Chloraprep was performed prior to application of Iodine impregnated skin protection. A timeout to confirm correct identity, side and site, procedure, allergies, anesthesia, and medical concerns was performed. With the knee in some flexion, a midline incision was made overlying the knee. Full thickness skin flaps were raised once the extensor mechanism was encountered. These were raised medially and laterally. Any bleeding was controlled with electrocautery. Once the extensor mechanism was fully exposed, a medial parapatellar arthrotomy was performed in a flexed position. All bleeding from the arthrotomy and the geniculate arteries was coagulated. A medial subperiosteal peel was performed with electrocautery to the midcoronal plane. The fat pad was removed while keeping the patellar tendon protected. The anterior distal femur synovium was removed for later visualization. The ACL and PCL were resected and the anterior horn of the lateral meniscus was transected. The knee was then flexed with the patella everted. Using a step drill, and based on preoperative templating, the femoral canal was entered. This was done with a step drill without any difficulty. The intramedullary distal femoral cut guide was inserted, set to a 6 degree valgus cut and 8mm cut thickness. The distal femoral cut guide was then held in position and pinned. With the soft tissues protected, the distal cut was performed. This was passed over a few times to ensure a planar cut. I then turned attention to the tibia. The extramedullary guide was placed onto the leg. The distal aspect was adjusted for correct orientation based on preoperative planning. Approximately 5 degrees of posterior slope was kept in the proximal cutting guide. The center of the guide was aligned with the PCL. The stylus was used to assess cut thickness. The medial side, most involved side, was set for a 5mm cut which corresponded to 8mm laterally. This was then held in position and pinned into place with 2 additional pins and a cross pin for stability. The medial and lateral collateral ligaments were protected and the cut was performed. With this completed, it was assessed and noted to be of appropriate dimensions. The guide was removed. A spacer block was inserted and the knee was brought into extension. The 6mm spacer block provided full extension, without hyperextension and with stability of both the medial and lateral collateral ligaments was assessed. The pins from the femur and the tibia were then removed. The distal femur was then sized. The anterior stylus was placed onto the lateral ridge of the anterior femur. This indicated a size 5 femur. The external rotation of the guide was adjusted to 3 degrees to match the epicondylar axis, perpendicular to Farber?s line. The 4-in-1 cutting guide was the placed. The spacer block was inserted underneath the cutting guide and stability was confirmed in 90 degrees of flexion. This seemed to be slightly loose in flexion so I moved the guide down 1.5mm and rechecked it. At this position there was much better stability. An shahida wing was used to confirm appropriate position of the anterior cut to avoid notching. This cutting guide was ensured to be flush on the cut surface and then pinned into place with headed pins. While protecting the soft tissues, quad tendon, and collateral ligaments, the anterior and posterior cuts were performed with a saw. The ce ntral two pins were removed and the posterior and anterior chamfers were cut next. The notch-cutting guide was placed. This was pinned to lateralize the femoral component as much as possible while keeping it flush on the cut surface. This was then pinned into position. The notch cut was performed. A rasp smoothed the cut surfaces. The medial and lateral menisci were removed. A trial femoral component was then inserted, impacted down to the cut surfaces, and the lug holes were drilled. A provisional trial tibial component was placed and the knee was brought through range of motion. There was noted to be excellent extension and flexion. There was no significant instability. The patella was tracking without thumbs. A size 6mm polyethylene component provided the best range of motion and stability with less than 2mm gapping with medial and lateral stress and full extension without significant hyperextension. The tibial cut surface was fully exposed. The tibia was then sized as a 3. The tibia had been previously marked during trialing to correspond to the center of the tibial component to help with rotation. The trial was aligned to this andrew, approximately rotated to the medial 1/3rd of the tibial tubercle. The trial was pinned into place. The tibia was prepared with a reamer and a keel punch and lug holes. The knee was then brought into extension and the patella was measured as 23mm. Using the patellar clamp and cut guide, this was resected to a flat surface with at least 13mm of thickness remaining. The size 35 patella fit the best. This was oriented and then clamped into position. The lugs were drilled. The trial components were removed. The final components were opened on the back table. The periosteal and capsular tissues, especially posteriorly, around the knee were then systematically injected with a periarticular cocktail consisting of 50cc 0.25% Marcaine, 30mg Ketorolac, 20cc of Exparal and 50cc of injectable saline. The knee was thoroughly irrigated with a pulse lavage and dried. Irrisept was also used to irrigate the tissues. On the back table, with the implants opened, the cement was mixed. One batch of high viscosity cement was prepared with vacuum assistance. After the cement was ready a small amount was placed on the cut surface of the patella and the patellar button was clamped into position and held. While the cement was hardening, the cementless knee components were placed. Starting with the tibial component, the tibia was subluxed anteriorly and the lug holes of the component were lined up. The tibia was then impacted with an impactor and mallet until the tibial component was in contact with the tibia. The final polyethylene component was inserted. Then, the femoral component was inserted. The lug holes were aligned and the component was impacted into position. The knee was irrigated with Irrisept chlorhexadine solution. This was allowed to sit in the knee for 3 minutes. After the cement had finally cured, approximately 15min, the clamp was removed from the patella and the knee was taken through range of motion. The patella was tracking with a no-thumbs technique. The capsule and arthrotomy was then reapproximated and closed with a No. 1 Vicryl in interrupted fashion. The second dosing of 1g TXA was started. Deep tissues were then reapproximated with 0 Vicryl and 2-0 Vicryl. The skin was closed with a running 3-0 Monocryl in a subcuticular fashion. This was reinforced with skin glue. A Mepilex silver dressing was applied along with a [id number] ELAN wrap. A CryoCuff was applied. Fiordaliza was transferred to the hospital bed without difficulty an suffering no apparent complication. Fiordaliza has a good prognosis. Physical therapy will start today and without restrictions, weight-bearing as tolerated. Aspirin 81mg BID will be used for DVT prophylaxis.
== END 2021-07-12 16:00 | disposition home or self-care (01) ==
PROVIDERS: PCP Family Medicine; Visit Provider Student in an Organized Health Care Education/Training Program
PROC: (CPT 27447; principal; 2021-07-12 12:00)
DX: M17.11 Unilateral primary osteoarthritis, right knee (principal); K90.0 Celiac disease
CPT/HCPCS: 27447; 97162; 97530; J0690; J1100; J1200; J1885; J2250; J2405

== ENCOUNTER 2021-07-25 12:09 | Outpatient (CLI) | payer BC, SELFPAY ==
--- NOTE | 2021-07-25 11:45 | DI.RAD_ITS ---
Exam(s) XR STANDING ALIGNMENT EXAM: XR STANDING ALIGNMENT CLINICAL HISTORY: 1ST POST OP R TKA. TECHNIQUE: 2D digital imaging was performed. COMPARISON: CR XR STANDING ALIGNMENT from 05/02/2021 FINDINGS: There has been interval placement of a right knee prosthesis. This knee also underwent prior ACL chapo [place] with remnant hardware. No fracture or loosening of the components the arthroplasty. Mild degen erative changes in the opposite-left knee. Both hips appear unremarkable as do the ankles. No osseo us lesions IMPRESSION: DATA REPOSITORY: RADIATION DOSE DELIVERED:
--- NOTE | 2021-07-25 11:45 | DI.RAD_ITS ---
Exam(s) XR KNEE RT 1V EXAM: XR KNEE RT 1V CLINICAL HISTORY: 1ST POST OP R TKA. TECHNIQUE: 2D digital imaging was performed. COMPARISON: CR XR KNEE RT 2V AP,LAT from 05/02/2021 FINDINGS: Single lateral view of the right knee compared to preop image [id number] Satisfactory position alignment components of recently placed prosthesis. Fracture or loosening. Th ere has been patellar resurfacing. Again noted is evidence of proceeding ACL surgery. IMPRESSION: DATA REPOSITORY: RADIATION DOSE DELIVERED:
== END 2021-07-25 12:10 | disposition home or self-care (01) ==
LOC: DIORS 12:09
PROVIDERS: PCP Family Medicine; Referring Provider Family Medicine; Visit Provider Student in an Organized Health Care Education/Training Program
DX: Z96.651 Presence of right artificial knee joint (principal); Z47.1 Aftercare following joint replacement surgery
CPT/HCPCS: 73560; 77073

== ENCOUNTER → 2021-10-03 10:17 | Outpatient (BNVA) | payer MEDICARE, BC, SELFPAY | PROVIDERS: PCP Family Medicine; Referring Provider Family Medicine; Visit Provider Student in an Organized Health Care Education/Training Program | DX: Z47.1 Aftercare following joint replacement surgery (principal); Z96.651 Presence of right artificial knee joint ==

== ENCOUNTER → 2021-11-14 10:44 | Outpatient (BNVA) | payer MEDICARE, BC, SELFPAY | PROVIDERS: PCP Family Medicine; Referring Provider Family Medicine; Visit Provider Student in an Organized Health Care Education/Training Program | DX: Z96.651 Presence of right artificial knee joint (principal) ==

== ENCOUNTER 2022-07-20 10:45 | Outpatient (CLI) | payer MEDICARE, SELFPAY ==
--- NOTE | 2022-07-20 10:15 | DI.RAD_ITS ---
Exam(s) XR KNEE RT 2V AP,LAT EXAM: XR KNEE RT 2V AP,LAT CLINICAL HISTORY: annual f/u R TKA TECHNIQUE: COMPARISON: CR XR KNEE RT 1V from 07/25/2021 FINDINGS: Two views were obtained and show total knee joint replacement position. Components appear well seate d. Fixation screw is also seen in the proximal tibial metaphysis. IMPRESSION: RADIATION DOSE DELIVERED: Total DLP
== END 2022-07-20 10:46 | disposition home or self-care (01) ==
LOC: DIORS 10:45
PROVIDERS: PCP Family Medicine; Referring Provider Family Medicine; Visit Provider Student in an Organized Health Care Education/Training Program
DX: Z96.651 Presence of right artificial knee joint (principal)
CPT/HCPCS: 99214; 73560

== ENCOUNTER → 2022-09-18 11:20 | Outpatient (BNVA) | payer MEDICARE, SELFPAY | PROVIDERS: PCP Family Medicine; Referring Provider Family Medicine; Visit Provider Student in an Organized Health Care Education/Training Program | DX: M67.912 Unspecified disorder of synovium and tendon, left shoulder (principal) | CPT/HCPCS: 20610; J1040 ==

== ENCOUNTER 2022-11-27 09:21 | Outpatient (CLI) | payer MEDICARE, SELFPAY ==
--- NOTE | 2022-11-27 09:15 | DI.RAD_ITS ---
Exam(s) XR SHOULDER LT COMPLETE 2+V EXAM: XR SHOULDER LT COMPLETE 2+V CLINICAL HISTORY: left shoulder pain. TECHNIQUE: 2D digital imaging was performed of the left shoulder. Four images were obtained. AP, Y -view and axillary views were obtained. COMPARISON: No exams were available for comparison FINDINGS: BONES: No acute fracture is present. No bony destructive lesion is seen. JOINTS: No dislocation present. There are postsurgical changes seen in the humeral head. There are de generative changes seen at the glenohumeral joint with mild bony hypertrophy of the humeral head. SOFT TISSUE: There is a well-circumscribed bony density adjacent to the acromion laterally which appe ars old. IMPRESSION: Mild degenerative and postsurgical changes of the left shoulder. DATA REPOSITORY: RADIATION DOSE DELIVERED:
== END 2022-11-27 09:22 | disposition home or self-care (01) ==
LOC: DIORS 09:21
PROVIDERS: PCP Family Medicine; Referring Provider Family Medicine; Visit Provider Student in an Organized Health Care Education/Training Program
DX: M67.812 Other specified disorders of synovium, left shoulder; M19.012 Primary osteoarthritis, left shoulder; M25.812 Other specified joint disorders, left shoulder
CPT/HCPCS: 99213; 73030

== ENCOUNTER 2022-12-21 00:46 | Outpatient (CLI) | payer MEDICARE, SELFPAY ==
--- NOTE | 2022-12-21 07:30 | DI.MRI_ITS ---
Exam(s) MR UPPER JOINT LT WO EXAM: MR UPPER JOINT LT WO CLINICAL HISTORY: PAIN,DYSFUNCTION OF LT ROTATOR CUFF,M67.912. TECHNIQUE: Multiplanar multisequence MRI was performed. COMPARISON: MR MR SHOULDER LEFT WO CONTRAST from 06/26/2018 CR XR SHOULDER LT COMPLETE 2+V from 11/27/2022 FINDINGS: BONES: There is no fracture or contusion pattern. Postsurgical changes are seen in the lateral aspect of the humeral head. JOINTS: Degenerative changes are seen at the acromioclavicular joint. The humeral head is superiorly located relative to the glenoid. TENDONS: Supraspinatus: There is a large tear of the supraspinatus tendon with retraction. Infraspinatus: There is a large partial tear of the infraspinatus tendon. Subscapularis: Unremarkable. Teres Minor: Unremarkable. Biceps and [place]: Unremarkable. MUSCLES: There is mild fatty atrophy of both the supraspinatus and infraspinatus muscles. The teres minor and subscapularis muscles are unremarkable. GLENOID LABRUM: Unremarkable on this noncontrast examination. SOFT TISSUES: Unremarkable. LIGAMENTS: Unremarkable. OTHER: There is fluid seen in the subacromial subdeltoid bursa. IMPRESSION: 1. Tear of the supraspinatus tendon with retraction. 2. Large partial tear of the infraspinatus tendon. 3. Superior subluxation of the humeral head at the glenohumeral joint suggestive of chronic rotator c uff tear. 4. Mild fatty atrophy of both the supraspinatus and infraspinatus muscles. 5. Degenerative changes at the acromioclavicular joint. Postsurgical changes in the humeral head. DATA REPOSITORY:
== END 2022-12-21 01:06 ==
LOC: DI 00:46
PROVIDERS: PCP Family Medicine; Visit Provider Student in an Organized Health Care Education/Training Program
DX: M67.912 Unspecified disorder of synovium and tendon, left shoulder (principal)
CPT/HCPCS: 73221

== ENCOUNTER → 2023-01-03 10:47 | Outpatient (BNVA) | payer MEDICARE, SELFPAY | PROVIDERS: PCP Family Medicine; Referring Provider Family Medicine; Visit Provider Student in an Organized Health Care Education/Training Program | DX: M12.812 Other specific arthropathies, not elsewhere classified, left shoulder (principal); M75.102 Unspecified rotator cuff tear or rupture of left shoulder, not specified as traumatic | CPT/HCPCS: 99215 ==

== ENCOUNTER → 2023-01-11 10:13 | Outpatient (BNVA) | payer MEDICARE, SELFPAY | PROVIDERS: PCP Family Medicine; Referring Provider Family Medicine | DX: M12.812 Other specific arthropathies, not elsewhere classified, left shoulder (principal); M75.102 Unspecified rotator cuff tear or rupture of left shoulder, not specified as traumatic | CPT/HCPCS: 20610; J1040 ==

== ENCOUNTER 2023-03-12 02:58 | Outpatient (CLI) | payer MEDICARE, SELFPAY ==
--- NOTE | 2023-03-12 07:30 | DI.CT_ITS ---
Exam(s) CT UPPER EXTREMITY LT WO EXAM: CT UPPER EXTREMITY LT WO CLINICAL HISTORY: Surgical planning,ROTATOR CUFF TEAR ARTHROPATHY,M75.102,M12.812. TECHNIQUE: Imaging Protocol: Axial computed tomography images with coronal and sagittal reformatted images were created and reviewed. COMPARISON: CR XR SHOULDER LT COMPLETE 2+V from 11/27/2022 MR MR UPPER JOINT LT WO from 12/21/2022 FINDINGS: Bones: There are findings of prior shoulder surgery with an orthopedic anchor in the humeral head. There is no acute fracture or dislocation. There are degenerative changes seen at the acromioclavicu lar joint. There are mild degenerative changes seen at the glenohumeral joint. There is superior augustin bluxation of the humeral head suggestive of chronic rotator cuff tear. No suspicious lytic or sclero tic lesions are seen. Soft Tissues: There is mild fatty atrophy of the supraspinatus muscle. IMPRESSION: 1. Degenerative changes of the acromioclavicular and glenohumeral joints. 2. Superior subluxation of the humeral head suggesting chronic rotator cuff tear. 3. Please refer to the MRI from 12/21/2022 for complete details. RADIATION DOSE DELIVERED: Total DLP Total DLP DATA REPOSITORY: All CT scans at this facility are submitted to the National Radiology Data Registry (NRDR) Dose Index Registry (DIR) with the [employer] (ACR). RADIATION OPTIMIZATION: All CT scans at this facility use at least one of these dose optimization te chniques: automated exposure control; mA and/or kV adjustment per patient size (includes targeted exa ms where dose is matched to clinical indication); or iterative reconstruction.
== END 2023-03-12 03:18 ==
LOC: DI 02:59
PROVIDERS: PCP Family Medicine; Visit Provider Student in an Organized Health Care Education/Training Program
DX: M19.012 Primary osteoarthritis, left shoulder; M75.120 Complete rotator cuff tear or rupture of unspecified shoulder, not specified as traumatic; Z98.890 Other specified postprocedural states
CPT/HCPCS: 73200

== ENCOUNTER → 2023-03-14 08:40 | Outpatient (BNVA) | payer MEDICARE, SELFPAY | PROVIDERS: PCP Family Medicine; Referring Provider Family Medicine; Visit Provider Student in an Organized Health Care Education/Training Program | DX: M75.102 Unspecified rotator cuff tear or rupture of left shoulder, not specified as traumatic (principal); M12.812 Other specific arthropathies, not elsewhere classified, left shoulder | CPT/HCPCS: 99214 ==

== ENCOUNTER 2023-07-19 13:51 | Outpatient (CLI) | payer MEDICARE, SELFPAY ==
--- NOTE | 2023-07-19 09:45 | DI.RAD_ITS ---
Exam(s) XR KNEE RT 2V AP,LAT EXAM: XR KNEE RT 2V AP,LAT CLINICAL HISTORY: ANNUAL F/U R TKA. TECHNIQUE: 2D digital imaging was performed. Two images were obtained. AP and lateral views were ob tained. COMPARISON: CR XR KNEE RT 2V AP,LAT from 07/20/2022 FINDINGS: BONES: There are stable post operative changes of a right total knee replacement present. No fractur e or dislocation. JOINTS: The orthopedic hardware is in good position. No evidence of hardware loosening. SOFT TISSUE: Normal. IMPRESSION: Stable postoperative changes. DATA REPOSITORY: RADIATION DOSE DELIVERED:
== END 2023-07-19 13:52 | disposition home or self-care (01) ==
LOC: DIORS 13:51
PROVIDERS: PCP Family Medicine; Visit Provider Student in an Organized Health Care Education/Training Program
DX: Z47.1 Aftercare following joint replacement surgery (principal); Z96.651 Presence of right artificial knee joint
CPT/HCPCS: 99213; 73560

== ENCOUNTER 2023-12-03 15:59 | Outpatient (CLI) | payer MEDICARE, SELFPAY ==
--- NOTE | 2023-12-03 13:15 | DI.RAD_ITS ---
Exam(s) XR KNEE LT 3V AP,LAT,SEVERO EXAM: XR KNEE LT 3V AP,LAT,SEVERO CLINICAL HISTORY: pain. TECHNIQUE: 2D digital imaging was performed of the left knee. Three images were obtained. AP, late ral and PA tunnel views were obtained. COMPARISON: CR LEFT KNEE LIMITED 1 OR 2 VIEWS from 08/24/2009 CR XR STANDING ALIGNMENT from 07/25/2021 FINDINGS: BONES: No acute fracture is present. No bony destructive lesion is seen. JOINTS: Small osteophytes are seen in all 3 joint compartments. No joint effusion is seen. No loose body. SOFT TISSUE: There is a tiny calcification adjacent to the medial femoral condyle likely reflecting p rior injury. It appears chronic. IMPRESSION: Mild degenerative changes of the left knee. DATA REPOSITORY: RADIATION DOSE DELIVERED:
== END 2023-12-03 16:00 | disposition home or self-care (01) ==
LOC: DIORS 16:00
PROVIDERS: PCP Family Medicine; Referring Provider Family Medicine; Visit Provider Student in an Organized Health Care Education/Training Program
DX: S83.242D Other tear of medial meniscus, current injury, left knee, subsequent encounter; X58.XXXD Exposure to other specified factors, subsequent encounter; Y93.41 Activity, dancing; M17.11 Unilateral primary osteoarthritis, right knee
CPT/HCPCS: 73562; 99213

== ENCOUNTER 2024-01-23 14:16 | Outpatient (CLI) | payer MEDICARE, SELFPAY ==
--- NOTE | 2024-01-23 11:44 | DI.RAD_ITS ---
Exam(s) XR SHOULDER RT COMPLETE 2+V EXAM: XR SHOULDER RT COMPLETE 2+V CLINICAL HISTORY: RIGHT SHOULDER PAIN. TECHNIQUE: 2D digital imaging was performed of the right shoulder. Two images were obtained. Grash ey and axillary views were obtained. COMPARISON: No priors for comparison FINDINGS: BONES: No acute fracture is present. No bony destructive lesion is seen. Orthopedic devices are seen in the humeral head. JOINTS: No dislocation present. There are degenerative changes seen at both the glenohumeral and acro mioclavicular joint. SOFT TISSUE: Normal. IMPRESSION: Osteoarthritis of the right shoulder. DATA REPOSITORY: RADIATION DOSE DELIVERED:
== END 2024-01-23 14:17 | disposition home or self-care (01) ==
LOC: DIORS 14:17
PROVIDERS: PCP Family Medicine; Referring Provider Family Medicine; Visit Provider Student in an Organized Health Care Education/Training Program
DX: M19.011 Primary osteoarthritis, right shoulder; M75.101 Unspecified rotator cuff tear or rupture of right shoulder, not specified as traumatic
CPT/HCPCS: 20610; J1010; 73030

== ENCOUNTER → 2024-02-07 08:18 | Outpatient (BNVA) | payer MEDICARE, SELFPAY | PROVIDERS: PCP Family Medicine; Referring Provider Family Medicine | DX: S83.242A Other tear of medial meniscus, current injury, left knee, initial encounter (principal); X58.XXXA Exposure to other specified factors, initial encounter | CPT/HCPCS: 20610; J1010 ==

== ENCOUNTER → 2024-06-23 09:14 | Outpatient (BNVA) | payer MEDICARE, SELFPAY | PROVIDERS: PCP Family Medicine; Referring Provider Family Medicine; Visit Provider Student in an Organized Health Care Education/Training Program | DX: S83.242A Other tear of medial meniscus, current injury, left knee, initial encounter (principal); X58.XXXA Exposure to other specified factors, initial encounter | CPT/HCPCS: 99213 ==

== ENCOUNTER 2024-07-15 00:47 | Outpatient (CLI) | payer MEDICARE, SELFPAY ==
--- NOTE | 2024-07-15 06:30 | DI.MRI_ITS ---
Exam(s) MR LOWER JOINT LT WO EXAM: MR LOWER JOINT LT WO CLINICAL HISTORY: PAIN,tear medial meniscus lt knee, s83.242a. TECHNIQUE: Multiplanar multisequence MRI was performed. COMPARISON: CR XR KNEE LT 3V AP,LAT,SEVERO from 12/03/2023 FINDINGS: BONES: There is no fracture or contusion pattern. JOINTS: There is thinning of the articular cartilage overlying the patella with mild subchondral josafat a. There is a 0.8 cm hypo intense object at the inferior aspect of the patellofemoral joint which ma y represent a loose body or cartilaginous fragment. No large cartilage defect is seen overlying the femoral tibial joint. There appears to be a cartilaginous defect overlying the anterior aspect of th e lateral femoral condyle. There is mild subchondral edema in this area. There is a small amount of fluid in the joint space. There are osteophytes seen at the patella. TENDONS: Extensor mechanism: Unremarkable. Medial retinaculum: Unremarkable. Lateral retinaculum: Unremarkable. Popliteus: Unremarkable. MUSCLES: Unremarkable. MENISCI: There is abnormal oblique signal seen in the body and posterior horn of the medial meniscus which contacts the inferior articular surface consistent with a tear. There is degenerative signal s een in the body of the lateral meniscus. SOFT TISSUES: There is a small to moderate-sized popliteal cyst. There is a cyst arising from the pr oximal tibial fibular joint. LIGAMENTS: Anterior Cruciate: Unremarkable. Posterior Cruciate: Unremarkable. Medial Collateral:Unremarkable. Lateral Collateral: Unremarkable. OTHER: IMPRESSION: 1. Tear involving the body and posterior horn of the medial meniscus. 2. Loose body seen in the joint inferior to the patellofemoral joint. This may have arisen from a ca rtilaginous defect overlying the lateral femoral condyle. 3. No evidence of a ligament tear. 4. Degenerative changes in the knee particularly at the patella femoral joint. 5. Chondromalacia of the patella. 6. Small to moderate sized popliteal cyst. DATA REPOSITORY:
== END 2024-07-15 01:07 ==
LOC: DI 00:48
PROVIDERS: PCP Family Medicine; Visit Provider Student in an Organized Health Care Education/Training Program
DX: S83.242A Other tear of medial meniscus, current injury, left knee, initial encounter (principal); X58.XXXA Exposure to other specified factors, initial encounter
CPT/HCPCS: 73721

== ENCOUNTER → 2024-07-24 14:23 | Outpatient (BNVA) | payer MEDICARE, SELFPAY | PROVIDERS: PCP Family Medicine; Referring Provider Family Medicine; Visit Provider Student in an Organized Health Care Education/Training Program | DX: M94.262 Chondromalacia, left knee (principal); S83.242D Other tear of medial meniscus, current injury, left knee, subsequent encounter; X58.XXXD Exposure to other specified factors, subsequent encounter | CPT/HCPCS: 99214 ==

== ENCOUNTER 2024-10-08 08:09 | Day surgery (SDC) | payer MEDICARE, SELFPAY ==
[2024-10-08] VITALS (24 sets, daily range): BP systolic 113–149; BP diastolic 65–85; PULSE 53–85; RESP 11–19; TEMP 36.3–37.6; O2SAT 93–100; BMI 21.9
--- NOTE | 2024-10-08 07:26 | W.PM.DSUDISC ---
Date of service: 10/08/24 Discharge Plan Disposition Patient Disposition: Home Condition: Good Discharge Details Reason For Visit: Left knee internal derangement Attending Provider: Miguel Lauren Primary Care Provider: Ramona Chapa Home Meds and New Rx's Prescriptions: New tramadol 50 mg tablet 50 mg PO Q6H PRN (Reason: severe postoperative pain) Qty: 6 0RF Rx Instructions: Take one tablet up to every 6 hours as needed for severe pain Continued acetaminophen [Tylenol 8 Hour] 650 mg tablet extended release 650 mg PO Q8H ibuprofen 600 mg tablet 600 mg PO TID PRN (Reason: pain) Qty: 90 2RF Rx Instructions: Take one tablet up to every 8 hours as needed for severe pain clobetasol 0.05 % cream 1 applic topical DAILY hydrocortisone 2 % lotion 1 applic topical BID PRN loratadine [Claritin] 10 mg tablet 10 mg PO DAILY calcium carbonate-vitamin D3 [Os-Edwin 500 + D3] 1 EACH tablet 1 ea PO BID Rx Instructions: TAKES OCCASIONALLY estradiol [Vagifem] 10 MCG tablet 10 mcg VG TWICE A WEEK Qty: 26 celecoxib [Celebrex] 200 mg capsule 200 mg PO BID PRN (Reason: pain) Qty: 60 0RF albuterol sulfate 90 mcg/actuation HFA aerosol inhaler 1 puff inhalation DIRECTED Patient Comments: INHALE 2 PUFFS BY MOUTH EVERY 4 HOURS NEEDED FOR COUGH/SHORTNESS OF BREATH, USE WITH SPACER famotidine [Pepcid] 20 mg tablet 20 mg PO BID Patient Comments: 40 mg this AM olopatadine [Pataday Once Daily Relief] 0.2 % drops 1 drp ophthalmic (eye) DAILY Discharge Instructions Stand Alone Forms: [facility] Knee Arthroscopy Referrals: Miguel Lauren MD [ [facility] STAFF PHYSICIAN] - Equipment/Supplies: Partial Weight Bearing Crutches Activity:: Elevate Remove Dressings/Wound Care:: 72 hours Shower/Bathe:: 72 hours Diet:: As Tolerated Discharge Orders Discharge Orders: Discharge Order (Routine); Ordered 10/08/24 Ordered By: Falguni Pepe
--- NOTE | 2024-10-08 09:00 | W.ANESPRE ---
General Info Date of Service Date Performed: 10/08/24 Height: 5 ft 1 in Weight: 52.8 kg Body Mass Index (BMI): 21.9 Surgical Procedure: Operation Date: 10/08/24 10:10 Proposed Procedure Side Surgeon p Knee Arthroscopy, Medial Menisectomy Left Miguel Lauren MD Meds Allergies and Home Medications Allergies Allergy/AdvReac Type Severity Reaction Status Date / Time hydrocodone Allergy Other (See Verified 10/08/24 08:51 Comment) vaccine adjuvant system, Allergy Other (See Verified 10/08/24 08:51 AS01B liposomal (From Comment) Shingrix (PF)) varicella-zoster virus Allergy Other (See Verified 10/08/24 08:51 glycoprotein E, recombinant Comment) (From Shingrix (PF)) codeine AdvReac Severe NAUSEA/VOMI Verified 10/08/24 08:51 TING gluten AdvReac Unknown DIARRHEA; Verified 10/08/24 08:51 PAIN homatropine (Homatropine) AdvReac Unknown VOMITING Verified 10/08/24 08:51 lactose AdvReac Unknown Nausea Verified 10/08/24 08:51 Home Medication ?Medication ?Instructions ?Recorded calcium 500 mg (as 1 ea PO BID 02/28/13 carbonate)-vitamin D3 5 mcg (200 unit) tablet (Os-Edwin 500 + D3) estradiol 10 mcg vaginal tablet 10 mcg vaginal TWICE A WEEK #26 07/24/13 (Vagifem) tab-caps albuterol sulfate 90 mcg/actuation 1 puff inhalation DIRECTED 07/11/21 aerosol inhaler ibuprofen 600 mg tablet 600 mg PO TID PRN pain #90 tabs 01/11/23 clobetasol 0.05 % topical cream 1 applic topical DAILY 03/14/23 hydrocortisone 2 % lotion 1 applic topical BID PRN 03/14/23 loratadine 10 mg tablet (Claritin) 10 mg PO DAILY 03/14/23 acetaminophen 650 mg 650 mg PO Q8H 06/23/24 tablet,extended release (Tylenol 8 Hour) celecoxib 200 mg capsule (Celebrex) 200 mg PO BID PRN pain #60 caps 06/24/24 famotidine 20 mg tablet (Pepcid) 20 mg PO BID 10/07/24 olopatadine 0.2 % eye drops 1 drp ophthalmic (eye) DAILY 10/08/24 (Pataday Once Daily Relief) tramadol 50 mg tablet 50 mg PO Q6H PRN severe 10/08/24 postoperative pain #6 tabs Current Visit Medications: Current Medications Generic Name Dose Route Start Last Admin Trade Name Herminio PRN Reason Stop Dose Admin Acetaminophen 1,000 mg 10/08/24 06:00 Acetaminophen 500 Mg Tab PO 10/08/24 23:59 PREOP RASHMI Acetaminophen 650 mg 10/08/24 07:26 Acetaminophen 325 Mg Tab PO 11/07/24 07:25 Q4H PRN PRN Celecoxib 400 mg 10/08/24 06:00 Celecoxib 200 Mg Cap PO 10/08/24 23:59 PREOP RASHMI Ringer's Solution 1,000 mls @ 80 mls/hr 10/08/24 06:00 IV 10/08/24 23:59 INFUSION RASHMI Cefazolin Sodium/Dextrose 2 gm in 50 mls @ 100 mls/hr 10/08/24 06:00 Ancef Duplex IVPB 10/08/24 23:59 PREOP RASHMI Tranexamic Acid/Sodium Chloride 1,000 mg in 100 mls @ 600 mls/hr 10/08/24 06:00 IVPB 10/08/24 23:59 PREOP RASHMI IV Miscellaneous Supplies 1 each 10/08/24 06:00 Iv Access IV 10/08/24 23:59 DIRECTED RASHMI Sodium Chloride 0 ml 10/08/24 06:00 Normal Saline Flush 10 Ml Syr IV 10/08/24 23:59 PRN PRN Sodium Chloride 0 ml 10/08/24 06:00 Normal Saline 10 Ml Vial IJ 10/08/24 23:59 DIRECTED PRN Sterile Water 0 ml 10/08/24 06:00 Water,Injection,Sterile 10 Ml Vial IJ 10/08/24 23:59 DIRECTED PRN PFSH Active Problems Active Problems: Problem Status Onset Code Chondromalacia, left knee Acute M94.262 Right rotator cuff tear arthropathy Acute M75.101, M12.811 Arthritis of right glenohumeral joint Acute M19.011 Tear of medial meniscus of left knee Acute S83.242A Conductive hearing loss, unilateral, right ear with restricted hearing on the contralateral side Acute H90.A11 Dysfunction of right eustachian tube Acute H69.91 Rotator cuff tear arthropathy of left shoulder Acute M75.102, M12.812 Sensorineural hearing loss Acute H90.5 Asymmetrical sensorineural hearing loss Acute H90.3 Medical History Medical History History of asthma Postoperative nausea and vomiting DVT (deep venous thrombosis) Herpes zoster Chondromalacia of right patellofemoral joint Breast lump (03/19/07) Celiac disease Dysfunctional uterine bleeding Hemorrhoids Lactose intolerance Menopausal syndrome Osteopenia per Dexa 2002/ unchanged in 2004 Polyp of colon 05/31/11- COLONOSCOPY DR. POOL Rectocele Rotator cuff syndrome (03/06/11) S/P surgery x 3 Thrombophlebitis R LEG @ AGE 16, POST TRAUMATIC Varicose veins of lower extremity (09/07/09) Surgical History Surgical History History of total right knee replacement (TKR) (07/12/21) History of repair of ACL Status post reconstruction of anterior cruciate ligament (~05/2019) VEIN STRIPPING (~2009) Rotator Cuff Repair x 4 2010/2011 Hemorrhoidectomy (~2008) Colonoscopy - MAC (06/01/11) DR. POOL BUNIONECTOMY 2005 1979 B/L Tobacco Smoking/Tobacco Use Status: Never Alcohol Alcohol Intake: current Alcohol intake frequency: a few times a week Substance Use Substance use: Never Substance use type: does not use Vital Signs and Lab Results Vital Signs Most Recent Vital Signs in EMR: Most Recent Vital Signs Temp Pulse Resp BP Pulse Ox 36.4 C L 60 16 140/75 100 10/08/24 08:45 10/08/24 08:45 10/08/24 08:45 10/08/24 08:45 10/08/24 08:45 Lab Results Blood Type / Crossmatch: No Data to Display Complete Blood Count: No Data to Display Complete Metabolic Panel: No Data to Display Liver Function Panel: No Data to Display Coagulation Panel: No Data to Display Cardiac Panel: No Data to Display Arterial Blood Gas: No Data to Display Venous Blood Gas: No Data to Display Pancreas Panel: No Data to Display Thyroid Panel: No Data to Display Infectious Disease: No Data to Display Blood Cultures: No Data to Display Toxicology Panel: No Data to Display Anesthesia Assessment and Plan Anesthesia History Personal History: PONV Family History: No Family History of Anesthesia Complications and Other Exercise Tolerance Exercise Tolerance: Metabolic Equivalents>4 Cardiac & Pulmonary Exam Cardiac Exam: Normal S1/S2 Heart Sounds Pulmonary Exam: Clear Bilateral Breath Sounds Implantable Cardiac Device Does patient have a Pacemaker or an ICD?: No Airway Exam Known Difficult Airway: No Mallampati Class: 1 Mouth Opening: Normal (> 3cm) Thyromental Distance: Greater than 3 cm Neck Range of Motion: Full ROM Neck Circumference: Normal Teeth Condition: Normal Dentition Airway Comments: Chipped #11 ASA Classification ASA Score: ASA 2 Emergency Case?: No NPO Status NPO Status: NPO Clears >2 hours, Solids >8 hours Anesthesia Plan Resuscitation Status: Full Code Anesthesia Technique: General Anesthesia Airway Planned: LMA Monitors Used: Standard Monitors Preoperative Comments:: 69 yo female for knee scope. Sig PMHx: asthma (albuterol for exercise), GERD (famotidine, well controlled), never smoker, occ EtOH. Previous Anes: PONV - hasn't been an issues lately. - TKA, chloro spinal, prop sedation, no issues.
[2024-10-08] MEDS: Acetaminophen 500 MG TAB 1000 MG PO (09:03)
[2024-10-08] MEDS: Celecoxib 200 MG CAP 400 MG PO (09:04)
--- NOTE | 2024-10-08 09:12 | W.PREOPHP ---
Assessment and Plan Assessment and plan (1) Tear of medial meniscus of left knee: Status: Acute Assessment and plan: Fiordaliza is a 69-year-old female who has a known medial meniscal tear of the left knee. Has failed nonoperative options and is here today for arthroscopic intervention. I reviewed this medical details of the surgery with her. I discussed the risk to include bleeding, infection, pain, stiffness, worsening arthritis, blood clot, osteonecrosis, read tear. Despite these risks, she elects to proceed. History of Present Illness History of Present Illness Chief Complaint: Left Knee Pain Narrative: Fiordaliza is a 69-year-old active female has known medial meniscal tear about the left knee. She has had injections and therapy and other nonoperative treatments but continues have pain, particular with rotational maneuvers. Therefore, she is here today for knee arthroscopy with partial medial meniscectomy. She denies any chest pain or shortness of breath. She denies any fever or chills. Review of Systems All systems reviewed & are unremarkable except as noted in HPI and below PFSH All Active Problems Chondromalacia, left knee (Acute) Right rotator cuff tear arthropathy (Acute) Arthritis of right glenohumeral joint (Acute) Tear of medial meniscus of left knee (Acute) DEPO MEDROL 02/07/24 Conductive hearing loss, unilateral, right ear with restricted hearing on the contralateral side (Acute) Dysfunction of right eustachian tube (Acute) Rotator cuff tear arthropathy of left shoulder (Acute) Depo-medrol injection: 01/11/23; 09/18/22 Sensorineural hearing loss (Acute) Asymmetrical sensorineural hearing loss (Acute) Medical History History of asthma Postoperative nausea and vomiting DVT (deep venous thrombosis) Herpes zoster Chondromalacia of right patellofemoral joint Breast lump (03/19/07) Celiac disease Dysfunctional uterine bleeding Hemorrhoids Lactose intolerance Menopausal syndrome Osteopenia per Dexa 2002/ unchanged in 2004 Polyp of colon 05/31/11- COLONOSCOPY DR. POOL Rectocele Rotator cuff syndrome (03/06/11) S/P surgery x 3 Thrombophlebitis R LEG @ AGE 16, POST TRAUMATIC Varicose veins of lower extremity (01/19/10) Surgical History History of total right knee replacement (TKR) (07/12/21) History of repair of ACL Status post reconstruction of anterior cruciate ligament (~05/2019) VEIN STRIPPING (~2009) Rotator Cuff Repair x 4 2010/2011 Hemorrhoidectomy (~2008) Colonoscopy - MAC (06/01/11) DR. CORINE MUELLER 2006 1979 B/L Family History Mother , accidental at age 37. Essential hypertension Father Diabetes Hyperlipidemia Sister Essential hypertension Brother Essential hypertension Hyperlipidemia Grandfather Essential hypertension Heart disease Hyperlipidemia Myocardial infarction Grandfather No problems noted. Grandmother Essential hypertension Grandmother Personal history of malignant neoplasm paternal aunt Personal history of malignant neoplasm breast Social History Smoking/Tobacco Use Status: Never Smoking risk assessment performed?: Yes Alcohol Intake: current Alcohol Intake frequency: a few times a week Alcohol type: hard liquor Drug use: Never Substance use type: does not use Details: alcohol: 1/2 bottle wine sunday Housing: house Number of Children: 3 current occupation: retired mathematical sciences professor, works as paraprofessional Pets and animals: Yes Pets and animals: dog(s) Current gender identity: female What is your relationship status?: Panel score (0-1 are the most socially isolated patients): 0 Do you feel safe at home: Yes Do you feel safe in your relationship?: Yes Additional Social history: UTAP Meds Allergies and Home Medications Allergies Allergy/AdvReac Type Severity Reaction Status Date / Time hydrocodone Allergy Other (See Verified 10/08/24 08:51 Comment) vaccine adjuvant system, Allergy Other (See Verified 10/08/24 08:51 AS01B liposomal (From Comment) Shingrix (PF)) varicella-zoster virus Allergy Other (See Verified 10/08/24 08:51 glycoprotein E, recombinant Comment) (From Shingrix (PF)) codeine AdvReac Severe NAUSEA/VOMI Verified 10/08/24 08:51 TING gluten AdvReac Unknown DIARRHEA; Verified 10/08/24 08:51 PAIN homatropine (Homatropine) AdvReac Unknown VOMITING Verified 10/08/24 08:51 lactose AdvReac Unknown Nausea Verified 10/08/24 08:51 Home Medications ?Medication ?Instructions ?Recorded ?Confirmed ?Type calcium 500 mg (as 1 ea PO BID 02/28/13 10/08/24 History carbonate)-vitamin D3 5 mcg (200 unit) tablet (Os-Edwin 500 + D3) estradiol 10 mcg vaginal tablet 10 mcg vaginal TWICE A WEEK #26 07/24/13 10/08/24 History (Vagifem) tab-caps albuterol sulfate 90 mcg/actuation 1 puff inhalation DIRECTED 07/11/21 10/08/24 History aerosol inhaler ibuprofen 600 mg tablet 600 mg PO TID PRN pain #90 tabs 01/11/23 10/08/24 Rx clobetasol 0.05 % topical cream 1 applic topical DAILY 03/14/23 10/08/24 History hydrocortisone 2 % lotion 1 applic topical BID PRN 03/14/23 10/08/24 History loratadine 10 mg tablet (Claritin) 10 mg PO DAILY 03/14/23 10/08/24 History acetaminophen 650 mg 650 mg PO Q8H 06/23/24 10/08/24 History tablet,extended release (Tylenol 8 Hour) celecoxib 200 mg capsule (Celebrex) 200 mg PO BID PRN pain #60 caps 06/24/24 10/08/24 Rx famotidine 20 mg tablet (Pepcid) 20 mg PO BID 10/07/24 10/08/24 History olopatadine 0.2 % eye drops 1 drp ophthalmic (eye) DAILY 10/08/24 10/08/24 History (Pataday Once Daily Relief) Exam Resp Effort & Inspection: normal respiratory effort Auscultation: clear to auscultation bilaterally Cardio Rate: regular rate Rhythm: regular rhythm Results Last Vital Signs Temp 36.4 C L 10/08/24 08:45 Pulse 60 10/08/24 08:45 Resp 16 10/08/24 08:45 BP 140/75 10/08/24 08:45 Pulse Ox 100 10/08/24 08:45
[2024-10-08] MEDS: Lactated Ringers 1,000 ML 80 ML IV (09:20)
[2024-10-08] MEDS: ceFAZolin 2 GM/50 ML BAG IVPB (09:58)
[2024-10-08] MEDS: TRANEXAMIC ACID/SOD. CHL. 1,000 MG/100 ML BAG 600 MG IVPB (10:00)
[2024-10-08] MEDS: EPINEPHrine 10 MG/10 ML ML (10:22)
[2024-10-08] MEDS: Bupivacaine 0.25% Pres-Free 30 ML VIAL (10:23)
[2024-10-08] MEDS: fentaNYL 100 MCG/2 ML VIAL IVP (11:13)
--- NOTE | 2024-10-08 11:39 | W.ANESPOSTOP ---
Postoperative Evaluation Date, Time and Location Date Performed: 10/08/24 Time Performed: 11:39 Patient Location: PACU Vital Signs Most Recent Imported Vital Signs: Most Recent Vital Signs Temp Pulse Resp BP Pulse Ox 37.6 C H 53 L 15 122/76 98 10/08/24 11:25 10/08/24 11:31 10/08/24 11:31 10/08/24 11:31 10/08/24 11:31 Pain Score Most Recent Pain Score: Most Recent Pain Score Pain Level 5 10/08/24 11:25 Assessment Mental Status: Awake (Alert & Oriented to Patient Baseline) Airway and Respiratory Function: Patent airway with normal (patient baseline) respiratory exam Cardiovascular Function: Hemodynamically Stable Hydration Status: Adequately Hydrated Nausea & Vomiting: No Nausea or Vomiting Pain: Pain is tolerable per patient Peripheral Nerve Block: Patient did not receive a nerve block
[2024-10-08] MEDS: traMADol 50 MG TAB PO (12:00)
--- NOTE | 2024-10-08 13:36 | W.ANESNERVE ---
Nerve Block Single Injection Procedure Date and Time Date Performed: 10/08/24 Procedure Start: 13:03 Location Where Procedure Performed Procedure Location: Day Surgery Unit Reason Performed: Postoperative Analgesia Requesting Provider: Miguel Lauren Timeout Performed Timeout Performed: Yes Monitoring Used ECG, Blood Pressure and SpO2 Sterility Sterility: Hand Hygiene, Surgical Cap, Surgical Mask, Sterile Gloves and Chlorhexidine Sedation Given During Procedure Sedation Given (Indicate Dose Given): No Sedation given Patient Mental Status Patient Mental Status: Awake Nerve Block 1st Nerve Block: Laterality: Left Block Type: Adductor Canal Ultrasound Image Saved?: Yes Needle / Catheter Used: 100mm SonoPlex II Local Anesthetic Bolus (Indicate Dose Given): Lidocaine used for local infiltration of skin and Bupivacaine 0.25% Dose:: 10 mL Additives (Indicate Dose Given): None Ultrasound: Sterile probe cover and gel used Nerve Stimulator: Supplement to Ultrasound use and No twitch or parasthesia noted < 0.5 mA Paresthesia: None Procedure Tolerated: No Complications Procedure Outcome: Successful Procedure Comment: Requested to perform a rescue nerve block for post operative pain. Discussed risks again. block performed with good effect. Performed By: Tulio Melara
--- NOTE | 2024-10-08 20:36 | ROE_ITS ---
Operative Note Operative Note PRE-OP DIAGNOSIS: Left knee medial meniscus tear POST-OP DIAGNOSIS: same (Grade IV chondromalacia of the trochlea) PROCEDURE: Arthroscopic partial medial mensisectomy - LEFT SURGEON: Miguel Lauren ANESTHESIA TYPE: Local By Surgeon and General LMA/ETT Refer to Anesthesia Record ESTIMATED BLOOD LOSS: 0 PATHOLOGY: none sent COMPLICATIONS: None Patient was transported to: PACU Patient's condition: stable Indications: I have seen Fiordaliza in clinic for persistent knee pain symptoms of a meniscus tear. This was confirmed based on MRI and exam findings. Nonoperative measures were exhausted but disability and pain persisted. I discussed knee arthroscopy with meniscal intervention with the patient. I reviewed the risks of the procedure to include, but not limited to, bleeding, infection, pain, stiffness, damage to nerves or vessels, recurrence, blood clot. Despite these risks, the patient elected to proceed. Findings: A diagnostic arthroscopy was performed with the following findings: Suprapatellar Pouch: Moderate inflammatory changes, No loose bodies Medial Compartment: Complex medial meniscal tear, Intact meniscal root although partial tearing, Some Grade II arthritis over the tibia Notch: ACL and PCL were intact Lateral Compartment: No meniscal tear, Intact meniscal root, Grade II chondromalacia in central tibia, No loose bodies Patellofemoral Compartment: Grade IV chondromalacia, No apparent patellar maltracking Procedure Description: Fiordaliza was greeted in the preoperative holding area where the correct side was identified and marked. The consent was reviewed with the patient and signed. The history and physical was updated. All questions were answered. She was taken back to the operating room. The patient was placed into the supine position on the operating room table. A nonsterile tourniquet was placed high onto the leg but not used. All bony prominences were well padded. Prophylactic antibiotics in the form of Cefazolin were administered. The leg was then prepped with Chloraprep and draped in a standard fashion with stockinette and extremity drape. A timeout to confirm correct identity, side and site, procedure, allergies, anesthesia, and medical concerns was performed. A standard lateral portal was made at the lateral border of the patella tendon in line with the inferior pole of the patella, soft spot. The skin and deep tissue was incised sharply and the blunt trochar was inserted atraumatically. A diagnostic arthroscopy was performed and the findings are listed above. The suprapatellar pouch had no significant inflammatory change. The patellofemoral articulation showed central air of the trochlea with grade IV chondromalacia but did have good tracking. The lateral gutter had no loose bodies and the medial gutter had no loose bodies. The knee was brought into some valgus stress in extension to open the medial compartment. A medial portal was made, localized by a spinal needle. The portal was created with an #11 blade through skin and capsule under direct visualization avoiding any meniscal injury. A probe was th en inserted into the medial compartment. The medial compartment was fully inspected. The chondral surface of the tibia showed no significant chondromalacia and the surface of the femur showed no significant chondromalacia. The medial meniscus had a complex tear from the body and posterior horn extending into the root. While it did not involve the Reha do not destabilize it.. After evaluation, the meniscus was debrided down to a stable base using a series of biters and arthroscopic quinten. It was probed afterwards to confirm that the tear had been removed and the meniscus was stable. The notch was then inspected which showed an intact ACL and an intact PCL. The leg was then brought into a figure of 4 position. The lateral compartment was fully inspected with the arthroscope and a probe. The chondral surface of the lateral femur showed no significant chondromalacia. The chondral surface of the lateral tibia showed minimal chondromalacia except for an area of central grade I/II chondromalacia approximately 4 x 6 mm. The lateral meniscus had no meniscal tear. The arthroscope was brought back into the suprapatellar pouch and the leg was in full extension. The knee was thoroughly irrigated with the arthroscopic fluid on high flow and pressure. Inflow was stopped and excess fluid was removed. The wounds were closed with 4-0 Nylon. They were dressed with Xeroform, 4x4 gauze, ABD pad, Kerlix and an ELAN wrap. A cryo-cuff was applied. The patient tolerated the procedure well and was returned to the [facility] area in a stable condition suffering no known complication. Date of Procedure: 10/08/24
== END 2024-10-08 13:39 | disposition home or self-care (01) ==
LOC: SUR 08:09
PROVIDERS: PCP Family Medicine; Visit Provider Student in an Organized Health Care Education/Training Program
PROC: (CPT 29870; principal; 2024-10-08 10:00)
DX: M23.232 Derangement of other medial meniscus due to old tear or injury, left knee (principal); M94.262 Chondromalacia, left knee; G89.18 Other acute postprocedural pain; M25.562 Pain in left knee; J45.909 Unspecified asthma, uncomplicated; K90.0 Celiac disease; Z86.718 Personal history of other venous thrombosis and embolism
CPT/HCPCS: 29881; 64447; J0665; J0690; J1100; J1885; J2405; J2704; J3010; J3475

== ENCOUNTER → 2024-10-20 14:17 | Outpatient (BNVA) | payer MEDICARE, SELFPAY | PROVIDERS: PCP Family Medicine; Referring Provider Family Medicine; Visit Provider Student in an Organized Health Care Education/Training Program | DX: Z47.89 Encounter for other orthopedic aftercare (principal); M25.562 Pain in left knee | CPT/HCPCS: 99024 ==

== ENCOUNTER → 2024-11-20 13:31 | Outpatient (BNVA) | payer MEDICARE, SELFPAY | PROVIDERS: PCP Family Medicine; Referring Provider Family Medicine; Visit Provider Student in an Organized Health Care Education/Training Program | DX: Z47.89 Encounter for other orthopedic aftercare (principal); M25.562 Pain in left knee | CPT/HCPCS: 20610; J1010 ==

== ENCOUNTER 2025-01-20 12:05 | Outpatient (CLI) | payer MEDICARE, SELFPAY ==
--- NOTE | 2025-01-20 10:49 | DI.RAD_ITS ---
Exam(s) XR SHOULDER LT COMPLETE 2+V EXAM: XR SHOULDER LT COMPLETE 2+V CLINICAL HISTORY: LEFT SHOULDER PAIN. TECHNIQUE: 2D digital imaging was performed. COMPARISON: CR XR SHOULDER RT COMPLETE 2+V from 01/23/2024 FINDINGS: Two views No evidence of fracture or dislocation. There are moderate degenerative changes in the glenohumeral joint and there is evidence of previous rotator cuff surgery with fastener device evident in the grea ter tuberosity region. There is mild diminution of the subacromial space. There is also small calci fic density in the lateral subacromial space also noted. Mild degenerative changes in the AC joint. IMPRESSION: As above. Previous rotator cuff surgery. Degenerative changes. DATA REPOSITORY: RADIATION DOSE DELIVERED:
== END 2025-01-20 12:06 | disposition home or self-care (01) ==
LOC: DIORS 12:05
PROVIDERS: PCP Family Medicine; Referring Provider Family Medicine; Visit Provider Student in an Organized Health Care Education/Training Program
DX: M75.102 Unspecified rotator cuff tear or rupture of left shoulder, not specified as traumatic (principal); M12.812 Other specific arthropathies, not elsewhere classified, left shoulder; Z98.890 Other specified postprocedural states
CPT/HCPCS: 99213; 20610; J1010; 73030

== ENCOUNTER → 2025-03-12 14:33 | Outpatient (BNVA) | payer MEDICARE, SELFPAY | PROVIDERS: PCP Family Medicine; Referring Provider Family Medicine; Visit Provider Physician Assistant | DX: M94.262 Chondromalacia, left knee (principal) | CPT/HCPCS: 20610; J1010 ==